=== PATIENT | female | born 1965 | race Caucasian/White ===

== ENCOUNTER → 2016-10-18 | Outpatient (CLI) | payer OTHER ==
--- NOTE | 2016-10-21 07:40 | MM ---
Reason for exam: screening (asymptomatic). Last mammogram was performed 1 year and 10 months ago. History: Benign cyst aspiration of the right breast, 2007. Physical Findings: A clinical breast exam by your physician is recommended on an annual basis and results should be correlated with mammographic findings. MG Screening Mammo w CAD Bilateral CC and MLO view(s) were taken. Prior study comparison: December 02, 2014, bilateral MG diagnostic mammo w CAD MELISSA. June 09, 2008, mammogram. The breast tissue is heterogeneously dense. This may lower the sensitivity of mammography. Finding: There are typically benign round calcifications in both breasts. There is no discrete abnormality. ASSESSMENT: Benign, BI-RAD 2 RECOMMENDATION: Routine screening mammogram of both breasts in 1 year.
== END | disposition home or self-care (01) ==
LOC: RADMAMWWP 06:56
PROVIDERS: ATTEND Family Medicine
DX: Z12.31 Encounter for screening mammogram for malignant neoplasm of breast (principal)

== ENCOUNTER → 2018-01-23 | Outpatient (CLI) | payer OTHER ==
--- NOTE | 2018-01-26 13:28 | MM ---
Reason for exam: screening (asymptomatic). Last mammogram was performed 1 year and 3 months ago. History: Benign cyst aspiration of the right breast, 2007. Physical Findings: A clinical breast exam by your physician is recommended on an annual basis and results should be correlated with mammographic findings. MG Screening Mammo w CAD Bilateral CC and MLO view(s) were taken. Prior study comparison: October 18, 2016, bilateral MG screening mammo w CAD. December 02, 2014, bilateral MG diagnostic mammo w CAD MELISSA. The breast tissue is heterogeneously dense. This may lower the sensitivity of mammography. Finding: There are typically benign dystrophic, grouped/clustered calcifications in the right breast. There is no discrete abnormality. ASSESSMENT: Benign, BI-RAD 2 RECOMMENDATION: Routine screening mammogram of both breasts in 1 year.
== END | disposition home or self-care (01) ==
LOC: RADMAMWWP 08:06
PROVIDERS: ATTEND Family Medicine
DX: Z12.31 Encounter for screening mammogram for malignant neoplasm of breast (principal)
CPT/HCPCS: 77067

== ENCOUNTER → 2019-01-26 | Outpatient (CLI) | payer OTHER ==
--- NOTE | 2019-01-27 09:53 | MM ---
Reason for exam: screening (asymptomatic). Last mammogram was performed 1 year ago. History: Benign cyst aspiration of the right breast, 2007. Physical Findings: A clinical breast exam by your physician is recommended on an annual basis and results should be correlated with mammographic findings. MG Screening Mammo w CAD Bilateral CC and MLO view(s) were taken. Prior study comparison: January 23, 2018, bilateral MG screening mammo w CAD. October 18, 2016, bilateral MG screening mammo w CAD. The breast tissue is heterogeneously dense. This may lower the sensitivity of mammography. There are benign appearing round calcifications in the right breast. There is no discrete abnormality. ASSESSMENT: Benign, BI-RAD 2 RECOMMENDATION: Routine screening mammogram of both breasts in 1 year.
== END | disposition home or self-care (01) ==
LOC: RADMAMWWP 08:02
PROVIDERS: ATTEND Family Medicine
DX: Z12.31 Encounter for screening mammogram for malignant neoplasm of breast (principal)
CPT/HCPCS: 77067

== ENCOUNTER → 2019-09-03 | Day surgery (SDC) | payer OTHER ==
[2019-09-01 13:12] VITALS: BMI 30.6
[~2019-09-03] MED LIST: LACTATED RINGERS 1,000 ML IV SCH; LIDOCAINE 1% 20 ML VIAL (10MG/ML) FOR IV START INTRADERMA PRN; PROPOFOL 10 MG/ML 20 ML VIAL IV ONE
[2019-09-03 08:38] VITALS: RESP 16
--- NOTE | 2019-09-03 08:59 | P.GSHP ---
History of Present Illness H&P Date: 09/03/19 Chief Complaint: GI bleed This a 54-year-old female who presents today for colonoscopy. Patient has had issues with GI bleed. Past Medical History Past Medical History: Hyperlipidemia, Hypertension, Myocardial Infarction ([place]) Additional Past Medical History / Comment(s): Told [place] d/t double dose of Rx prescribed. Last Myocardial Infarction Date:: 2013 History of Any Multi-Drug Resistant Organisms: None Reported Past Surgical History: Tonsillectomy, Tubal Ligation, Uterine Ablation Past Anesthesia/Blood Transfusion Reactions: Previous Problems w/ Anesthesia Additional Past Anesthesia/Blood Transfusion Reaction / Comment(s): 1987 Stopped breathing after Rx given after childbirth. Smoking Status: Never smoker - Past Family History Mother Family Medical History: Cancer Additional Family Medical History / Comment(s): uterine CA Father Family Medical History: Cancer Additional Family Medical History / Comment(s): Lung CA Medications and Allergies Home Medications Medication Instructions Recorded Confirmed Type Aspirin [Adult Low Dose Aspirin EC] 81 mg PO DAILY 09/01/19 09/03/19 History Atorvastatin [Lipitor] 40 mg PO HS 09/01/19 09/03/19 History Lisinopril-Hctz 20-25 mg 1 tab PO DAILY 09/01/19 09/03/19 History [Zestoretic 20-25] Venlafaxine HCl [Effexor] 37.5 mg PO HS 09/01/19 09/03/19 History amLODIPine BESYLATE 5 mg PO DAILY 09/01/19 09/03/19 History Allergies Allergy/AdvReac Type Severity Reaction Status Date / Time No Known Allergies Allergy Verified 09/03/19 08:33 Surgical - Exam Vital Signs Pulse Resp BP Pulse Ox 80 16 146/101 97 09/03/19 08:36 09/03/19 08:36 09/03/19 08:36 09/03/19 08:36 - General well developed, well nourished, no distress - Eyes PERRL - ENT normal pinna - Neck no masses - Respiratory normal expansion - Cardiovascular Rhythm: regular - Abdomen Abdomen: soft, non tender Assessment and Plan Assessment: GI bleed. We'll perform colonoscopy.
--- NOTE | 2019-09-03 09:18 | P.OP ---
Date of Procedure: 09/03/19 Preoperative Diagnosis: GI bleed Postoperative Diagnosis: External hemorrhoids Procedure(s) Performed: Colonoscopy Anesthesia: MAC Surgeon: Bro Armstrong Pathology: none sent Condition: stable Disposition: PACU Description of Procedure: The patient's placed on the endoscopy table in the lateral position. She received IV sedation. Digital rectal exam was performed which revealed external hemorrhoids. The flexible colonoscope was then placed patient anus and passed throughout the entire colon. The ileocecal valve was visualized. The cecum, ascending and transverse colon appeared normal. The descending and sigmoid colon appeared normal. Scope was then brought back through the anus and minimal internal hemorrhoids were seen. External hemorrhoids were seen as well. Is no evidence of any GI bleed. His presumed that her previous rectal bleeding is due to hemorrhoids.
[2019-09-03 09:46] VITALS: BP 128/88; PULSE 71
== END | disposition home or self-care (01) ==
LOC: ORWHC2ENDO 08:03
PROVIDERS: ATTEND Surgery
DX: K64.4 Residual hemorrhoidal skin tags (principal); K64.8 Other hemorrhoids; K92.2 Gastrointestinal hemorrhage, unspecified; E78.5 Hyperlipidemia, unspecified; I10 Essential (primary) hypertension; I25.2 Old myocardial infarction; Z98.51 Tubal ligation status; Z80.49 Family history of malignant neoplasm of other genital organs; Z80.1 Family history of malignant neoplasm of trachea, bronchus and lung; Z79.82 Long term (current) use of aspirin; Z79.899 Other long term (current) drug therapy; I25.10 Atherosclerotic heart disease of native coronary artery without angina pectoris
CPT/HCPCS: 45378; J2704

== ENCOUNTER → 2019-11-05 | Outpatient (CLI) | payer OTHER ==
[2019-11-05 18:39] LABS: African American GFR (CKD) 82.8 (60.0-200.0); Anion Gap 8.9 mmol/L (4.00-12.00); BUN/Creat Ratio 18.89 Ratio (12.00-20.00); Calcium 9.6 mg/dL (8.7-10.3); Carbon Dioxide 30.1 mmol/L (21.6-31.8); Magnesium 2.2 mg/dL (1.5-2.4); Non-African American GFR(CKD) 71.5 (60.0-200.0); Potassium 4.3 mmol/L (3.5-5.5)
== END | disposition home or self-care (01) ==
LOC: LABWHC1 09:10
PROVIDERS: ATTEND Internal Medicine Interventional Cardiology
DX: R00.2 Palpitations (principal); I49.3 Ventricular premature depolarization
CPT/HCPCS: 36415; 80048; 83735; 84443

== ENCOUNTER → 2020-06-26 | Outpatient (CLI) | payer OTHER ==
--- NOTE | 2020-06-27 14:10 | MM ---
Reason for exam: screening (asymptomatic). Last mammogram was performed 1 year and 5 months ago. History: Benign cyst aspiration of the right breast, 2007. Physical Findings: A clinical breast exam by your physician is recommended on an annual basis and results should be correlated with mammographic findings. MG Screening Mammo w CAD Bilateral CC and MLO view(s) were taken. Prior study comparison: January 26, 2019, bilateral MG screening mammo w CAD. January 23, 2018, bilateral MG screening mammo w CAD. The breast tissue is heterogeneously dense. This may lower the sensitivity of mammography. Benign appearing bilateral calcifications. No significant changes when compared with prior studies. ASSESSMENT: Benign, BI-RAD 2 RECOMMENDATION: Routine screening mammogram of both breasts in 1 year.
== END | disposition home or self-care (01) ==
LOC: RADMAMWWP 08:17
PROVIDERS: ATTEND Family Medicine
DX: Z12.31 Encounter for screening mammogram for malignant neoplasm of breast (principal)
CPT/HCPCS: 77067

== ENCOUNTER → 2020-10-25 | Outpatient (CLI) | payer OTHER ==
--- NOTE | 2020-10-25 11:32 | US ---
EXAMINATION TYPE: US thyroid st tissue head/neck DATE OF EXAM: 10/25/2020 COMPARISON: NONE CLINICAL HISTORY: 55-year-old female R13.10 Dysphagia, J31.2 Chronic Sore Throat. Dysphagia. TECHNIQUE: Multiple sonographic images of the thyroid gland are obtained. FINDINGS: GLAND SIZE: Right Lobe: 5.3 x 1.6 x 1.8 cm Overall Parenchyma: homogenous Left Lobe: 4.7 x 1.6 x 1.6 cm Overall Parenchyma: homogeneous Isthmus Thickness: 0.3 cm NODULES RIGHT: # of nodules measured on right: 0 LEFT: # of nodules measured on left: 0 ISTHMUS: # of nodules measured in the isthmus: 0 Bilateral neck scanned, no evidence of lymphadenopathy. IMPRESSION: Borderline to mild thyromegaly. No discrete nodule.
== END | disposition home or self-care (01) ==
LOC: RADUSWWP 10:33
PROVIDERS: ATTEND Family Medicine
DX: E01.0 Iodine-deficiency related diffuse (endemic) goiter (principal); J31.2 Chronic pharyngitis
CPT/HCPCS: 76536

== ENCOUNTER → 2023-01-23 | Outpatient (CLI) | payer OTHER ==
[2023-01-23 13:24] VITALS: BP 99/66; PULSE 64; RESP 16; TEMP 98.4
--- NOTE | 2023-01-23 14:26 | P.GSHP ---
History of Present Illness H&P Date: 01/23/23 Chief Complaint: nipple discharge Lindsay is a 57 year old white female seen in consultation for Dr. Galvan. She had a bilateral mammogram mirtha left breast ultrasound on 11-29-22 which were BIRAD 2. She is complaining of left nipple discharge for about 1 month. It was green. She has never had it before. It started after she took some vitamins. It dripped out of her breast. She is still getting the discharge, only when she squezzes. CAffiene: 2 cups/day nicotine:none chocolate: daily BCP: 20 years Family History: sister: breast cancer mother: uterine cancer father: lung cancer paternal uncle: lung cancer paternal uncle: colon cancer maternal grandfather: prostate cancer Hormonal History; menarche: 14 age at first : 22, breast fed: yes menopause: 2007 ablatioin Surgical history: Tonsillectomy Uterine ablation Medical History: depression/anxiety [place] possible two CVA's Social History: nicotine: none alcohol: occasional drugs: Marijuana daily - Constitutional Constitutional: Denies chills, Denies fever - EENT Eyes: bilateral blurred vision, denies pain Ears: bilateral: decreased hearing, tinnitus Ears, nose, mouth and throat: Denies headache, Denies sore throat - Breasts Breasts: bilateral: as per HPI - Cardiovascular Cardiovascular: Denies chest pain, Denies shortness of breath - Respiratory Respiratory: Denies cough, Denies 7 - Gastrointestinal Comment: PUD when younger; blood in stool had a colonoscopy not know where it is coming from Gastrointestinal: Denies abdominal pain, Denies diarrhea, Denies nausea, Denies vomiting - Genitourinary (Female) Genitourinary: Denies dysuria, Denies hematuria - Menstruation Menstruation: Reports postmenopausal - Musculoskeletal Musculoskeletal: Reports myalgias - Integumentary Integumentary: Reports rash, Denies pruritus - Neurological Neurological: Denies numbness, Denies weakness - Psychiatric Psychiatric: Reports anxiety, Reports depression - Endocrine Endocrine: Reports fatigue, Denies weight change - Hematologic/Lymphatic Comment: none - Allergic/Immunologic Allergic/Immunologic: Reports as per HPI Past Medical History Past Medical History: Hyperlipidemia, Hypertension, Myocardial Infarction ([place]) Additional Past Medical History / Comment(s): Told [place] d/t double dose of Rx prescribed. Last Myocardial Infarction Date:: 2013 History of Any Multi-Drug Resistant Organisms: None Reported Past Surgical History: Tonsillectomy, Tubal Ligation, Uterine Ablation Past Anesthesia/Blood Transfusion Reactions: Previous Problems w/ Anesthesia Additional Past Anesthesia/Blood Transfusion Reaction / Comment(s): 1987 Stopped breathing after Rx given after childbirth. Past Psychological History: Anxiety, Depression Smoking Status: Never smoker Past Alcohol Use History: Rare Past Drug Use History: None Reported - Past Family History Mother Family Medical History: Cancer Additional Family Medical History / Comment(s): uterine CA Father Family Medical History: Cancer Additional Family Medical History / Comment(s): Lung CA Medications and Allergies Home Medications Medication Instructions Recorded Confirmed Type Atorvastatin [Lipitor] 40 mg PO HS 09/01/19 01/23/23 History Lisinopril-Hctz 20-25 mg 1 tab PO DAILY 09/01/19 01/23/23 History [Zestoretic 20-25] Venlafaxine HCl [Effexor] 37.5 mg PO HS 09/01/19 01/23/23 History amLODIPine BESYLATE 5 mg PO DAILY 09/01/19 01/23/23 History Allergies Allergy/AdvReac Type Severity Reaction Status Date / Time No Known Allergies Allergy Verified 01/23/23 13:18 Surgical - Exam Vital Signs Temp Pulse Resp BP Pulse Ox 98.4 F 64 16 99/66 98 01/23/23 13:20 01/23/23 13:20 01/23/23 13:20 01/23/23 13:20 01/23/23 13:20 - General no distress - Eyes normal ocular movement - ENT no hearing loss - Neck trachea midline - Respiratory normal respiratory effort, clear to auscultation - Cardiovascular Rhythm: regular Heart Sounds: normal: S1, S2 - Abdomen Abdomen: soft, non tender, no guarding, no rigid, no rebound - Integumentary normal turgor - Neurologic no disoriented, no combative - Musculoskeletal normal gait - Psychiatric oriented to time, oriented to person, oriented to place, speech is normal, memory intact Breast Exam: BRA: 36C Inspection: Bilateral grade 2/3 ptosis Palpation: Right breast: Multi-positional exam fibrocystic changes no dominant masses or not is of concern Right axilla: No adenopathy of concern Left breast: Multi-positional exam fibrocystic changes, nipple discharge yellow in nature guaiac negative Left axilla: No adenopathy of concern Results I have reviewed Patient's mammogram and ultrasound results. Assessment and Plan Assessment: Impression: Fibrocystic breast changes with left breast nipple discharge Recent bilateral mammogram and left breast ultrasound benign BIRADS2; [id number] Plan: 1. Bilateral mammogram in 1 year with examination at that time Patient encouraged to stop caffeine and chocolate intake If patient notes any blood in the discharge then we would like to see her sooner Cc: Dr. Nohemy Galvan
== END ==
LOC: WWCWWP 12:46
PROVIDERS: ATTEND Surgery
DX: N60.11 Diffuse cystic mastopathy of right breast (principal); N64.52 Nipple discharge; N60.12 Diffuse cystic mastopathy of left breast; E78.5 Hyperlipidemia, unspecified; F32.A Depression, unspecified; F41.9 Anxiety disorder, unspecified; I10 Essential (primary) hypertension; I25.2 Old myocardial infarction; Z80.0 Family history of malignant neoplasm of digestive organs; Z80.1 Family history of malignant neoplasm of trachea, bronchus and lung; Z80.3 Family history of malignant neoplasm of breast; Z79.899 Other long term (current) drug therapy; Z80.42 Family history of malignant neoplasm of prostate

== ENCOUNTER → 2023-12-01 | Outpatient (CLI) | payer OTHER ==
--- NOTE | 2023-12-02 22:12 | MM ---
Reason for Exam: Screening (asymptomatic). Last screening mammogram was performed 12 month(s) ago. Patient History: Menarche at age 14. First Full-Term at age 22. Postmenopausal. 2007, Benign Cyst Aspiration on the right side. Sister had breast cancer, age 55. Risk Values: Sari 5 year model risk: 2.5%. NCI Lifetime model risk: 12.4%. Prior Study Comparison: 01/26/2019 Bilateral Screening Mammogram, [facility]. 06/26/2020 Bilateral Screening Mammogram, [facility]. 11/29/2022 Bilateral MG diagnostic mammo w CAD MELISSA, [facility]. Tissue Density: The breast tissue is heterogeneously dense. This may lower the sensitivity of mammography. Findings: Analyzed By CAD. Chronic nodularity on the left. There is no suspicious group of microcalcifications or new suspicious mass in either breast. Overall Assessment: Benign, BI-RAD 2 Management: Screening Mammogram of both breasts in 1 year. . Patient should continue monthly self-breast exams. A clinical breast exam by your physician is recommended on an annual basis. This exam should not preclude additional follow-up of suspicious palpable abnormalities. Note on Sari scores and lifetime risk: 1. A Sari score greater than 3% is considered moderate risk. If this is the case, consider specialist referral to assess eligibility for a risk reducing agent. 2. If overall lifetime risk for the development of breast cancer is 20% or higher, the patient may qualify for future screening with alternating mammogram and breast MRI. Electronically signed and approved by: Bebeto Mas M.D. Radiologist
== END | disposition home or self-care (01) ==
LOC: RADMAMWWP 09:55
PROVIDERS: ATTEND Surgery
DX: Z12.31 Encounter for screening mammogram for malignant neoplasm of breast (principal); Z80.3 Family history of malignant neoplasm of breast; Z78.0 Asymptomatic menopausal state
CPT/HCPCS: 77067

== ENCOUNTER → 2023-12-11 | Outpatient (CLI) | payer OTHER ==
--- NOTE | 2023-12-11 09:39 | P.PN ---
Subjective Progress Note Date: 12/11/23 Principal diagnosis: nipple discharge Lindsay is a 58 year old white female seen initially in consultation for Dr. Galvan. She had a bilateral mammogram and a left breast ultrasound on 11-29-22 which was BECCA 2. She was complaining of left nipple discharge for about 1 month. It was green. She had never had it before. It started after she took some vitamins. It dripped out of her breast. She has no further nipple discharge. At this time she is continuing the vitamins. Her most recent bilateral mammogram was on 12-01-23 and was BIRAD 2. This was personally reviewed. Sari Risk: 2.5% at 5 year; has chemoprophylaxis and she has declined. CAffiene: 2 cups/day nicotine:none chocolate: daily BCP: 20 years She smokes marijuana daily Family History: sister: breast cancer mother: uterine cancer father: lung cancer paternal uncle: lung cancer paternal uncle: colon cancer maternal grandfather: prostate cancer Hormonal History; menarche: 14 age at first : 22, breast fed: yes menopause: 2007 ablatioin Surgical history: Tonsillectomy Uterine ablation Medical History: depression/anxiety [place] possible two CVA's Social History: nicotine: none alcohol: occasional drugs: Marijuana daily - Constitutional Constitutional: Denies chills, Denies fever - EENT Eyes: bilateral blurred vision, denies pain Ears: bilateral: decreased hearing, tinnitus Ears, nose, mouth and throat: Denies headache, Denies sore throat - Breasts Breasts: bilateral: as per HPI - Cardiovascular Cardiovascular: Denies chest pain, Denies shortness of breath - Respiratory Respiratory: Denies cough - Gastrointestinal Comment: PUD when younger; blood in stool had a colonoscopy not know where it is coming from Gastrointestinal: Denies abdominal pain, Denies diarrhea, Denies nausea, Denies vomiting - Genitourinary (Female) Genitourinary: Denies dysuria, Denies hematuria - Menstruation Menstruation: Reports postmenopausal - Musculoskeletal Musculoskeletal: Reports myalgias - Integumentary Integumentary: Reports rash, Denies pruritus - Neurological Neurological: Denies numbness, Denies weakness - Psychiatric Psychiatric: Reports anxiety, Reports depression - Endocrine Endocrine: Reports fatigue, Denies weight change - Hematologic/Lymphatic Comment: none - Allergic/Immunologic Allergic/Immunologic: Reports as per HPI Past Medical History Past Medical History: Hyperlipidemia, Hypertension, Myocardial Infarction ([place]) Additional Past Medical History / Comment(s): Told [place] d/t double dose of Rx prescribed. Last Myocardial Infarction Date:: 2013 History of Any Multi-Drug Resistant Organisms: None Reported Past Surgical History: Tonsillectomy, Tubal Ligation, Uterine Ablation Past Anesthesia/Blood Transfusion Reactions: Previous Problems w/ Anesthesia Additional Past Anesthesia/Blood Transfusion Reaction / Comment(s): 1987 Stopped breathing after Rx given after childbirth. Past Psychological History: Anxiety, Depression Smoking Status: Never smoker Past Alcohol Use History: Rare Past Drug Use History: None Reported - Past Family History Mother Family Medical History: Cancer Additional Family Medical History / Comment(s): uterine CA Father Family Medical History: Cancer Additional Family Medical History / Comment(s): Lung CA Medications and Allergies Home Medications Medication Instructions Recorded Confirmed Type Atorvastatin [Lipitor] 40 mg PO HS 09/01/19 01/23/23 History Lisinopril-Hctz 20-25 mg 1 tab PO DAILY 09/01/19 01/23/23 History [Zestoretic 20-25] Venlafaxine HCl [Effexor] 37.5 mg PO HS 09/01/19 01/23/23 History amLODIPine BESYLATE 5 mg PO DAILY 09/01/19 01/23/23 History Allergies Allergy/AdvReac Type Severity Reaction Status Date / Time No Known Allergies Allergy Verified 01/23/23 13:18 Objective - Constitutional General appearance: Present: cooperative - EENT Eyes: Present: EOMI ENT: Present: hearing grossly normal - Neck Neck: Present: normal ROM - Respiratory Respiratory: bilateral: CTA - Cardiovascular Heart sounds: normal: S1, S2 - Integumentary Integumentary: Present: normal turgor - Musculoskeletal Musculoskeletal: Present: gait normal - Psychiatric Psychiatric: Present: A&O x's 3, appropriate affect, intact judgment & insight - Additional findings Additional findings: Breast Exam: BRA: 36C Inspection: Bilateral grade 2/3 ptosis Palpation: Right breast: Multi-positional exam fibrocystic changes no dominant masses or not is of concern Right axilla: No adenopathy of concern Left breast: Multi-positional exam fibrocystic changes, nipple discharge yellow in nature guaiac negative Left axilla: No adenopathy of concern Assessment and Plan Assessment: Impression: Fibrocystic breast changes Bilateral mammogram 12-01-2023 BI-RADS 2 Sari risk 2.5% patient declined chemoprophylaxis Plan: Repeat bilateral mammogram 1 year with physician exam at that time Patient to follow-up sooner any questions or concerns CC: DR. Berny Payton
[2023-12-11 09:59] VITALS: BP 119/87; PULSE 70; RESP 17; TEMP 97.9
== END ==
LOC: WWCWWP 09:14
PROVIDERS: ATTEND Surgery
DX: N60.11 Diffuse cystic mastopathy of right breast (principal); N60.12 Diffuse cystic mastopathy of left breast; N64.52 Nipple discharge; F41.9 Anxiety disorder, unspecified; F32.A Depression, unspecified; I25.2 Old myocardial infarction; F12.90 Cannabis use, unspecified, uncomplicated; E78.5 Hyperlipidemia, unspecified; I10 Essential (primary) hypertension; Z80.3 Family history of malignant neoplasm of breast; Z98.51 Tubal ligation status; Z79.899 Other long term (current) drug therapy

== ENCOUNTER → 2024-12-09 | Outpatient (CLI) | payer OTHER ==
[2024-12-09 10:31] VITALS: BP 135/95; PULSE 76; RESP 17; TEMP 97.8
--- NOTE | 2024-12-09 11:31 | P.PN ---
Subjective Progress Note Date: 12/09/24 Principal diagnosis: bloody nipple discharge left breast Principal diagnosis: nipple discharge Lindsay is a 59 year old white female seen initially in consultation for Dr. Galvan with left nipple discharge. She had a bilateral mammogram and a left breast ultrasound on 11-29-22 which was BECCA 2. She was complaining of left nipple discharge for about 1 month. It was green. She had never had it before. It started after she took some vitamins. It dripped out of her breast. She has no further nipple discharge on her last visit. At this time she is continuing the vitamins. She states that the nipple discharge has started again and changed color. The color varies now from green and reddish-brown. She is not complaining of any lumps masses or nodules of concern in either breast. It does not occur spontaneously. It happens at least several times a month. Her most recent bilateral mammogram was on 12-02-24 and was BIRAD 2. This was personally reviewed. Her sister Kalyani Lewis of breast cancer January 2024 of breast cancer. Sari Risk: 2.6% at 5 year; discussed chemoprophylaxis and she has declined. CAffiene: 2 cups/day nicotine:none chocolate: daily BCP: 20 years She smokes marijuana QOD, she is cutting back Family History: sister: breast cancer/ mother: uterine cancer father: lung cancer paternal uncle: lung cancer paternal uncle: colon cancer maternal grandfather: prostate cancer Hormonal History; menarche: 14 age at first : 22, breast fed: yes menopause: 2007 ablatioin Surgical history: Tonsillectomy Uterine ablation Medical History: depression/anxiety [place] possible two CVA's high cholesterol Social History: nicotine: none alcohol: occasional drugs: Marijuana daily - Constitutional Constitutional: Denies chills, Denies fever - EENT Eyes: bilateral blurred vision, denies pain Ears: bilateral: decreased hearing, tinnitus Ears, nose, mouth and throat: Denies headache, Denies sore throat - Breasts Breasts: bilateral: as per HPI - Cardiovascular Cardiovascular: Denies chest pain, Denies shortness of breath - Respiratory Respiratory: Denies cough - Gastrointestinal Comment: PUD when younger; blood in stool had a colonoscopy not know where it is coming from Gastrointestinal: Denies abdominal pain, Denies diarrhea, Denies nausea, Denies vomiting - Genitourinary (Female) Genitourinary: Denies dysuria, Denies hematuria - Menstruation Menstruation: Reports postmenopausal - Musculoskeletal Musculoskeletal: Reports myalgias - Integumentary Integumentary: Reports rash, Denies pruritus - Neurological Neurological: Denies numbness, Denies weakness - Psychiatric Psychiatric: Reports anxiety, Reports depression - Endocrine Endocrine: Reports fatigue, Denies weight change - Hematologic/Lymphatic Comment: none - Allergic/Immunologic Allergic/Immunologic: Reports as per HPI Past Medical History Past Medical History: Hyperlipidemia, Hypertension, Myocardial Infarction ([place]) Additional Past Medical History / Comment(s): Told [place] d/t double dose of Rx prescribed. Last Myocardial Infarction Date:: 2013 History of Any Multi-Drug Resistant Organisms: None Reported Past Surgical History: Tonsillectomy, Tubal Ligation, Uterine Ablation Past Anesthesia/Blood Transfusion Reactions: Previous Problems w/ Anesthesia Additional Past Anesthesia/Blood Transfusion Reaction / Comment(s): 1987 Stopped breathing after Rx given after childbirth. Past Psychological History: Anxiety, Depression Smoking Status: Never smoker Past Alcohol Use History: Rare Past Drug Use History: None Reported - Past Family History Mother Family Medical History: Cancer Additional Family Medical History / Comment(s): uterine CA Father Family Medical History: Cancer Additional Family Medical History / Comment(s): Lung CA Medications and Allergies Home Medications Medication Instructions Recorded Confirmed Type Atorvastatin [Lipitor] 40 mg PO HS 09/01/19 01/23/23 History Lisinopril-Hctz 20-25 mg 1 tab PO DAILY 09/01/19 01/23/23 History [Zestoretic 20-25] Venlafaxine HCl [Effexor] 37.5 mg PO HS 09/01/19 01/23/23 History amLODIPine BESYLATE 5 mg PO DAILY 09/01/19 01/23/23 History Allergies Allergy/AdvReac Type Severity Reaction Status Date / Time No Known Allergies Allergy Verified 01/23/23 13:18 Objective - Vital Signs Vital signs: Vital Signs Temp 97.8 F 12/09/24 10:29 Pulse 76 12/09/24 10:29 Resp 17 12/09/24 10:29 BP 135/95 12/09/24 10:29 Pulse Ox 100 12/09/24 10:29 FiO2 Intake & Output 12/08/24 12/09/24 12/09/24 18:59 06:59 18:59 Weight 61.689 kg - Constitutional General appearance: Present: cooperative - EENT Eyes: Present: EOMI ENT: Present: hearing grossly normal - Neck Neck: Present: normal ROM - Respiratory Respiratory: bilateral: CTA - Cardiovascular Rhythm: regular Heart sounds: normal: S1, S2 - Integumentary Integumentary: Present: normal turgor - Musculoskeletal Musculoskeletal: Present: gait normal - Psychiatric Psychiatric: Present: A&O x's 3, appropriate affect, intact judgment & insight - Additional findings Additional findings: Breast Exam: BRA: 36C Inspection: Bilateral grade 2/3 ptosis Palpation: Right breast: Multi-positional exam fibrocystic changes no dominant masses or not is of concern Right axilla: No adenopathy of concern Left breast: Multi-positional exam fibrocystic changes, nipple discharge redish brown, guiac (+) Left axilla: No adenopathy of concern Assessment and Plan Assessment: Impression: Fibrocystic breast changes nipple discharge left breast guiac (+) Bilateral mammogram 12-02-2024 BI-RADS 2 Sari risk 2.6% patient declined chemoprophylaxis Plan: ultrasound of the left breast to try to determine source of nipple discharge and follow up after this if ultrasound (-) MRI duct exploration left breast bloody discharge Patient to follow-up sooner any questions or concerns CC: DR. Berny Payton
== END ==
LOC: WWCWWP 10:12
PROVIDERS: ATTEND Surgery
DX: N60.19 Diffuse cystic mastopathy of unspecified breast (principal); N64.52 Nipple discharge; F12.90 Cannabis use, unspecified, uncomplicated; Z80.3 Family history of malignant neoplasm of breast

== ENCOUNTER → 2024-12-13 | Outpatient (CLI) | payer OTHER ==
--- NOTE | 2024-12-13 07:58 | USB ---
Reason for Exam: Clinical finding. Patient History: Menarche at age 14. First Full-Term at age 22. Postmenopausal. 2008, Benign Cyst Aspiration on the right side. Sister had breast cancer, age 55. Risk Values: Sari 5 year model risk: 2.6%. NCI Lifetime model risk: 12.1%. Technique: Method: Targeted. Prior Study Comparison: 11/29/2022 Bilateral MG diagnostic mammo w CAD MELISSA, [facility]. 11/29/2022 Left US breast limited LT, [facility]. 12/01/2023 Bilateral MG screening mammo w CAD, [facility]. 12/02/2024 Bilateral MG screening mammo w CAD, [facility]. Findings: The periareolar of the left breast, the axilla of the left breast and the retroareolar of the left breast were scanned. Targeted ultrasound subareolar and periareolar left breast including scanning of the axilla. Patient reports previous green nipple discharge which has now become bloody discharge. Scheduled for breast MRI today. At the 12:00 position, 1 cm from the nipple, there is an oval isoechoic mass adjacent to or within an ectatic duct. The area measures 1.3 x 1.0 x 0.6 cm. Tissue sampling recommended given patient's symptoms. At the 8:00 position, 2 cm from the nipple, there is a oval heterogeneous hypoechoic lesion measuring 7 x 7 x 5 mm with through transmission. Tissue sampling is recommended. No other solid or cystic lesion or axillary adenopathy. Overall Assessment: Suspicious, BI-RAD 4 Management: Ultrasound Core Biopsy of the left breast. 2 sites. We note symptoms of bloody nipple discharge and that the patient is scheduled for MRI today as well. Results were given to the patient verbally at the time of exam. [facility], , 12/13/2024 7:55 AM. Electronically signed and approved by: Bebeto Mas M.D. Radiologist
--- NOTE | 2024-12-15 09:29 | BMR ---
EXAM DATE: 12/13/2024 EXAM DESCRIPTION: MRI-Breast Bilat (W/WO Contrast) INDICATION: Left nipple discharge charge x1 year, discharge recently bloody. COMPARISON: Comparison is made with relevant prior imaging in PACS. CONTRAST: Six cc of gadobutrol TECHNIQUE: Multiplanar MRI imaging of both breasts was performed with a dedicated breast coil, before and after intravenous administration of gadolinium contrast, using the standard breast mass protocol. Computer-aided detection was used to aid in interpretation. FINDINGS: General breast composition: There are scattered areas of fibroglandular tissue Background parenchymal enhancement: Moderate FINDINGS: Right Breast: Review of the dynamic contrast-enhanced series shows bilateral duct ectasia with proteinaceous debris versus blood products. No definite intraductal mass identified no rapidly enhancing masses, suspicious enhancement patterns or other abnormalities. The T2 weighted series shows no abnormality. Left Breast: Review of the dynamic contrast-enhanced series shows bilateral duct ectasia with proteinaceous debris versus blood products. No definite intraductal mass identified. No rapidly enhancing masses, suspicious enhancement patterns or other abnormalities. The T2 weighted series shows no abnormality. Miscellaneous findings:1.5 cm right hepatic lobe T2 hyperintense nonenhancing hepatic cyst. 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 No definite intraductal mass identified in either breast. No MRI evidence of malignancy. BI-RADS Category2- Benign Recommendation: Consider surgical consult if bloody nipple discharge continues. Recommend routine screening on schedule, patient is due for screening mammogram in 11/2025. [facility]
== END | disposition home or self-care (01) ==
LOC: RADUSWWP 07:10
PROVIDERS: ATTEND Surgery
DX: N60.42 Mammary duct ectasia of left breast (principal)
CPT/HCPCS: 76642; C8908; A9585; 77049

== ENCOUNTER → 2024-12-16 | Outpatient (CLI) | payer OTHER ==
[2024-12-16 09:44] VITALS: BP 144/95; PULSE 92; RESP 17; TEMP 97.8
--- NOTE | 2024-12-16 16:03 | P.PN ---
Subjective Progress Note Date: 12/16/24 Principal diagnosis: bloody left nipple discharge bloody nipple discharge left breast Principal diagnosis: nipple discharge Lindsay is a 59 year old white female seen initially in consultation for Dr. Galvan with left nipple discharge. She had a bilateral mammogram and a left breast ultrasound on 11-29-22 which was BECCA 2. She was complaining of left nipple discharge for about 1 month. It was green. She had never had it before. It started after she took some vitamins. It dripped out of her breast. She has no further nipple discharge on her last visit. At this time she is continuing the vitamins. She states that the nipple discharge has started again and changed color. The color varies now from green and reddish-brown. She is not complaining of any lumps masses or nodules of concern in either breast. It does not occur spontaneously. It happens at least several times a month. Her most recent bilateral mammogram was on 12-02-24 and was BIRAD 2. This was personally reviewed. Her sister Kalyani Lewis of breast cancer January 2024 of breast cancer. Sari Risk: 2.6% at 5 year; discussed chemoprophylaxis and she has declined. 12-13-24 bilateral MRI of the breast/ bilateral duct ectasia with proteinaceous debri versus blood products BIRAD 2 ultrasound of the left breast two lesions at 12 and 8 OClock recommend tissue biopsy She continues to have bloody discharge but only if she squeezes the breast. The patient is extremely angry that the ultrasound showed something of concern and we have recommended ultrasound-guided core biopsy. The patient has declined having this done and is swearing and stating she only wants surgery. At this point in time I feel like I cannot offer adequate care for the patient. Her case will be referred back to Dr. Noah Bernardo where another surgeon can be recommended. She is at increased risk for breast cancer with bloody discharge and with her family history of her sister dying of breast cancer. Objective - Vital Signs Vital signs: Vital Signs Temp 97.8 F 12/16/24 09:42 Pulse 92 12/16/24 09:42 Resp 17 12/16/24 09:42 BP 144/95 12/16/24 09:42 Pulse Ox 92 L 12/16/24 09:42 FiO2 Intake & Output 12/15/24 12/16/24 12/16/24 18:59 06:59 18:59 Weight 61.689 kg
--- NOTE | 2024-12-16 16:20 | P.PN ---
Subjective Progress Note Date: 12/16/24 Principal diagnosis: bloody left nipple discharge To Whom It May Concern, Lindsay is a 59-year-old female who initially presented with bloody nipple discharge on 12-09-24. As a part of her workup a left breast ultrasound and MRI were recommended. Following radiographic workup there was recommendation for a needle biopsy of 2 lesions in the left breast. The patient presented on 12-16-24 for results of these findings. When she was told that a biopsy was recommended she became very angry. She insisted that she would not have a biopsy and that she wanted to go only to surgery. She began swearing and threatening us. She stated that she would be back for us and that we did not know what she was capable of doing. And that we should be scared of her. She was asked to leave and escorted out the front door swearing, yelling, and threatening us as she was escorted out. She threatened not only myself but my medical assistance as well. I have contacted and talked personally to her primary care physician, Dr. Galvan. She is made aware and asked to refer patient elsewhere. We do have concerns regarding her bloody nipple discharge and radiographic findings as well as positive family history of breast cancer. It is felt that the patient needs additional treatment, however secondary to her combative unreasonable behavior we are unable to accommodate her. It is felt she should not be allowed in the women's center at [facility] for any further treatment secondary to her threats. Chioma Bautista Objective - Vital Signs Vital signs: Vital Signs Temp 97.8 F 12/16/24 09:42 Pulse 92 12/16/24 09:42 Resp 17 12/16/24 09:42 BP 144/95 12/16/24 09:42 Pulse Ox 92 L 12/16/24 09:42 FiO2 Intake & Output 12/15/24 12/16/24 12/16/24 18:59 06:59 18:59 Weight 61.689 kg
== END ==
LOC: WWCWWP 09:24
PROVIDERS: ATTEND Surgery
DX: N64.52 Nipple discharge (principal); F12.90 Cannabis use, unspecified, uncomplicated

== ENCOUNTER 2024-12-29 06:55 | Day surgery (SDC) | payer OTHER ==
[2024-12-27 11:22] VITALS: BMI 25.7
[~2024-12-29 06:55] MED LIST changes: -LACTATED RINGERS 1,000 ML IV SCH; -LIDOCAINE 1% 20 ML VIAL (10MG/ML) FOR IV START INTRADERMA PRN; -PROPOFOL 10 MG/ML 20 ML VIAL IV ONE; +Pre Op ABX Message 1 EACH MISC MISCELLANE ONE
[2024-12-29] MEDS ORDERED: HYDROmorphone 0.5 MG/0.5 ML SYRINGE IVP PRN (07:00)
[2024-12-29] MEDS: LACTATED RINGERS 1,000 ML IV ONE (08:12)
[2024-12-29] MEDS: ACETAMINOPHEN TAB 500 MG TAB PO PRN (08:14)
[2024-12-29] MEDS: DEXAMETHASONE SOD PHOSPHATE 4 MG/ML 1 ML VIAL IV ONE (08:15)
[2024-12-29] MEDS: ONDANSETRON 4 MG/2 ML VIAL IVP ONE (08:15)
[2024-12-29] MEDS: LACTATED RINGERS 1,000 ML IV SCH (08:15)
[2024-12-29] MEDS: HEPARIN SODIUM,PORCINE 5,000 UNIT/ML 1 ML VIAL SQ PRN (08:16)
[2024-12-29] MEDS: SODIUM CHLORIDE 0.9% 50 ML with ceFAZolin 2,000 MG IV ONE (08:24)
[2024-12-29] MEDS ORDERED: MIDAZOLAM 2 MG/2 ML VIAL ONE (08:24)
[2024-12-29] MEDS ORDERED: KETOROLAC 30 MG/ML 1 ML VIAL ONE (08:24)
[2024-12-29] MEDS ORDERED: PROPOFOL 10 MG/ML 20 ML VIAL IV ONE (08:24)
[2024-12-29] MEDS ORDERED: SUCCINYLCHOLINE CHLORIDE 200 MG/10 ML VIAL IV ONE (08:24)
[2024-12-29] MEDS ORDERED: fentaNYL (PF) 50 MCG/ML 2 ML AMP ONE (08:24)
[2024-12-29] MEDS ORDERED: PHENYLEPHRINE-0.9% NACL SYG 1,000 MCG/10 ML SYRINGE ONE (08:24)
[2024-12-29] MEDS: LIDOCAINE 1%-EPI 1:100,000 20 ML VIAL SQ ONE ×2 (08:52)
[2024-12-29 09:42] VITALS: TEMP 97
--- NOTE | 2024-12-29 09:53 | P.OP ---
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 She received general endotracheal anesthesia. Her left breast was prepped and draped you sterile fashion. An infra areolar skin incision was made. Then using electrocautery and sharp dissection the nipple complex was lifted off of the breast. Lifted off of the breast. The patient had several ectatic ducts. Using the harmonic scissors the breast biopsy performed. The specimen was then tagged with a short suture on the superior side and a long suture on the nipple side. The wound was packed for hemostasis. There is no bleeding seen. The skin was closed interrupted 3-0 Monocryl suture. Dermabond w dressing was applied. Patient Toller procedure well. She was sent to recovery stable con dition.
[2024-12-29 09:59] VITALS: RESP 16
[2024-12-29 10:39] VITALS: BP 117/79; PULSE 89
== END 2024-12-29 11:07 | disposition home or self-care (01) ==
LOC: OR 06:55
PROVIDERS: ATTEND Surgery
DX: N60.42 Mammary duct ectasia of left breast (principal)
CPT/HCPCS: 19101; J2250; J0330; J1644; J1100; J2405; J0690; J3010; J1885; J2704; J2371; 88305